=== PATIENT | female | born 1980 | race Caucasian/White ===

== ENCOUNTER 2019-01-03 16:43 | Emergency (ER) | payer MEDICAID, OTHER | END 2019-01-03 20:26 | disposition left against medical advice (07) | LOC: FTE 16:43 | DX: H92.01 Otalgia, right ear (principal); F17.210 Nicotine dependence, cigarettes, uncomplicated | CPT/HCPCS: 99282 ==

== ENCOUNTER → 2019-05-28 | Emergency (ER) | payer SELFPAY, OTHER, MEDICAID ==
[2019-05-28] MEDS: KETOROLAC 30 MG INJ IM (18:44)
[2019-05-28] MEDS: DEXAMETHASONE 10 MG/ML 1 ML INJ IM (18:45)
== END | disposition home or self-care (01) ==
LOC: FTE 17:39
DX: M54.41 Lumbago with sciatica, right side (principal)
CPT/HCPCS: 81025; 96372; 99284-25